=== PATIENT | male | born 1995 | race Caucasian/White ===

== ENCOUNTER 2017-11-03 13:45 | Emergency (ER) | payer OTHER ==
[2017-11-03] MEDS: HYDROCODONE/APAP (5/325) TAB PO (15:09)
[2017-11-03] MEDS: LIDOCAINE 1% (MDV) 20 ML INJ SC (15:14)
== END 2017-11-03 16:20 | disposition home or self-care (01) ==
LOC: FTE 13:45
DX: K64.9 Unspecified hemorrhoids (principal); F17.210 Nicotine dependence, cigarettes, uncomplicated
CPT/HCPCS: 46050; 99283-25